=== PATIENT | male | born 1965 | race Caucasian/White ===

== ENCOUNTER 2018-02-17 18:41 | Inpatient (IN) | payer OTHER ==
[~2018-02-17] VITALS: Ht 180.3 cm; Wt 91.7 kg
[~2018-02-17 18:41] MED LIST: ADDERALL 10 MG10 MG; ATIVAN0.5 MG PO; LISINOPRIL10 MG PO; ULTRAM50 MG PO
[2018-02-17] MEDS ORDERED: SODIUM CHLORIDE 0.9% 1000ML 1,000 ML IV STA (19:19)
[2018-02-17] MEDS ORDERED: HYDROMORPHONE 1MG/1ML INJ IV STA ×2 (19:19→22:07)
[2018-02-17] MEDS ORDERED: ONDANSETRON HCL INJ 2 MG/ML VIAL IV STA ×2 (19:19→22:07)
[2018-02-17] MEDS ORDERED: DIATRIZOATE MEGL/DIATRIZOA SOD 30 ML BTL PO ONE (19:31)
[2018-02-17 19:32] LABS: BASOPHILS # (AUTO) 0.1 (0.0-0.1); BASOPHILS % 0.6 % (0.0-1.0); EOSINOPHILS # (AUTO) 0.3 (0.0-0.4); EOSINOPHILS % 3.6 % (0.0-6.0); HEMOGLOBIN 15.2 g/dL (14.0-18.0); LYMPHOCYTES # (AUTO) 1.3 (1.0-3.2); LYMPHOCYTES % 15.6 % (18.0-39.1); MEAN CORPUSCULAR HEMOGLOBIN 33.3 pg (28-32); MEAN CORPUSCULAR HGB CONC 35.3 g/dL (31-35); MEAN CORPUSCULAR VOLUME 94.3 fL (81-99); MONOCYTES % 11.6 % (4.4-11.3); NEUTROPHILS # (AUTO) 5.7 (2.1-6.9); NEUTROPHILS % 68.1 % (38.7-80.0); PLATELET COUNT 218 x10e3/uL (140-360); RED BLOOD COUNT 4.56 x10e6/uL (4.3-5.7)
[2018-02-17 19:45] LABS: ALANINE AMINOTRANSFERASE 91 IU/L (0-55); ALBUMIN 4.2 g/dL (3.5-5.0); ALBUMIN/GLOBULIN RATIO 1.4 (0.8-2.0); ALKALINE PHOSPHATASE 63 IU/L (40-150); AMYLASE 32 U/L (25-125); ANION GAP 13.5 mmol/L (8-16); BLOOD UREA NITROGEN 15 mg/dL (7-26); BUN/CREATININE RATIO 17 (6-25); CALCIUM 9.2 mg/dL (8.4-10.2); CARBON DIOXIDE 24 mmol/L (22-29); CHLORIDE 105 mmol/L (98-107); CREATININE, SERUM 0.88 mg/dL (0.72-1.25); EST GLOMERULAR FILTRATION RATE > 60 ML/MIN (60-); GLUCOSE 104 mg/dL (74-118); LIPASE 35 U/L (8-78); POTASSIUM 4.5 mmol/L (3.5-5.1); SODIUM 138 mmol/L (136-145)
[2018-02-17] MEDS ORDERED: METHYLPREDNISOLONE SOD SUCC 125 MG/2ML VIAL IV STA (21:28)
[2018-02-17] MEDS ORDERED: DIPHENHYDRAMINE HCL INJ 50 MG/ML VIAL IV STA (21:28)
[2018-02-17] MEDS ORDERED: DIPHENHYDRAMINE HCL INJ 50 MG/ML VIAL ONE (21:29)
[2018-02-17] MEDS ORDERED: METHYLPREDNISOLONE SOD SUCC 125 MG/2ML VIAL ONE (21:29)
--- NOTE | 2018-02-17 21:50 | Diagnostic Imaging Report ---
EXAM: CT Abdomen and Pelvis WITH contrast INDICATION: Left lower quadrant pain concerning for diverticulitis COMPARISON: None. TECHNIQUE: Abdomen and pelvis were scanned utilizing a multidetector helical scanner from the lung base to the pubic symphysis after administration of IV contrast. Coronal and sagittal reformations were obtained. Routine protocol was performed. Scan was performed when during portal venous phase. IV CONTRAST: 100 mL of Isovue-370 ORAL CONTRAST: Gastrografin RADIATION DOSE: Total DLP: 615.33 mGy*cm Estimated effective dose: (DLP x 0.015 x size factor) mSv COMPLICATIONS: None FINDINGS: LINES and TUBES: None. LOWER THORAX: Unremarkable HEPATOBILIARY: The liver is diffuse hypodense compared to the spleen, consistent with diffuse hepatic diffuse hepatic steatosis. No focal hepatic lesions. No biliary ductal dilation. GALLBLADDER: No radio-opaque stones or sludge. No wall thickening. SPLEEN: No splenomegaly. PANCREAS: No focal masses or ductal dilatation. ADRENALS: No adrenal nodules KIDNEYS/URETERS: Kidneys enhance symmetrically. No hydronephrosis. No cystic or solid mass lesions. No stones. GI TRACT: Segmental circumferential thickening of the distal descending colon best seen on coronal series 301, image 54 and sagittal, series 300, image 113 and axial series 2, image 62 There are diverticula within the colon without evidence of diverticulitis. Appendix is normal. PELVIC ORGANS/BLADDER: Unremarkable. LYMPH NODES: No lymphadenopathy. VESSELS: There is moderate atherosclerotic disease in the aorta and major arterial branches. PERITONEUM / RETROPERITONEUM: No free air or fluid. BONES: Unremarkable. SOFT TISSUES: Unremarkable. IMPRESSION: 1. Diverticulosis without evidence of diverticulitis. 2. Focal short segment circumferential thickening of the distal descending colon compatible with colitis. 3. No evidence of complications Signed by: Dr. Gray Gotti M.D. on 02/17/2018 9:47 PM
[2018-02-17] MEDS ORDERED: SODIUM CHLORIDE 0.9% 50ML 50 ML ONE (22:38)
[2018-02-17] MEDS ORDERED: IOPAMIDOL 370 MG/ML 200 ML INFUS..BTL INJ ONE (22:38)
[2018-02-17] MEDS: SODIUM CHLORIDE 0.9% 1000ML 1,000 ML IV SCH (23:00)
[2018-02-18] VITALS (10 sets, daily range): BP systolic 107–143; BP diastolic 58–99
[2018-02-18] MEDS: METRONIDAZOLE 500MG/NS 100ML 100 ML IV SCH ×5 (00:30→18:23)
[2018-02-18] MEDS: LEVOFLOXACIN 500MG/D5W 100ML 100 ML IV SCH ×2 (00:36→22:15)
[2018-02-18 00:54] LABS: HEMATOCRIT 41.6 % (38.2-49.6); HEMOGLOBIN 14.7 g/dL (14.0-18.0)
[2018-02-18] MEDS: MORPHINE SULFATE 2 MG/ML SYR IV PRN ×3 (05:44→18:20)
[2018-02-18 06:39] LABS: BILIRUBIN,URINE NEGATIVE (NEGATIVE); CLARITY,URINE CLEAR (CLEAR); COLOR,URINE YELLOW (YELLOW); KETONES,URINE NEGATIVE (NEGATIVE); LEUKOCYTE ESTERASE ,URINE NEGATIVE (NEGATIVE); NITRITE,URINE NEGATIVE (NEGATIVE); PROTEIN,URINE DIPSTICK NEGATIVE (NEGATIVE); URINE UROBILINOGEN 0.2 mg/dL (0.2 - 1)
[2018-02-18 06:44] LABS: HEMATOCRIT 40.9 % (38.2-49.6); HEMOGLOBIN 14.2 g/dL (14.0-18.0)
[2018-02-18] MEDS: SODIUM CHLORIDE 0.9% 1000ML 1,000 ML IV SCH ×3 (07:21→22:07)
[2018-02-18 07:39] LABS: ALANINE AMINOTRANSFERASE 82 IU/L (0-55); ALBUMIN 3.6 g/dL (3.5-5.0); ALBUMIN/GLOBULIN RATIO 1.2 (0.8-2.0); ALKALINE PHOSPHATASE 55 IU/L (40-150); ANION GAP 10.5 mmol/L (8-16); BLOOD UREA NITROGEN 12 mg/dL (7-26); BUN/CREATININE RATIO 13 (6-25); CALCIUM 8.6 mg/dL (8.4-10.2); CARBON DIOXIDE 24 mmol/L (22-29); CHLORIDE 104 mmol/L (98-107); CREATININE, SERUM 0.91 mg/dL (0.72-1.25); EST GLOMERULAR FILTRATION RATE > 60 ML/MIN (60-); GLUCOSE 161 mg/dL (74-118); POTASSIUM 4.5 mmol/L (3.5-5.1); SODIUM 134 mmol/L (136-145)
[2018-02-18] MEDS: PANTOPRAZOLE 40 MG 10ML VIAL IV SCH (09:12)
[2018-02-18] MEDS ORDERED: PEG (High)/E-LYTE SOLN 4,000 ML BTL PO ONE (15:15)
[2018-02-18 18:38] LABS: HEMATOCRIT 40.3 % (38.2-49.6)
[2018-02-18] MEDS ORDERED: CITRATE OF MAGNESIA 300ML BOTTLE PO ONE (22:15)
[2018-02-19] VITALS (7 sets, daily range): BP systolic 119–149; BP diastolic 78–93
[2018-02-19] MEDS: METRONIDAZOLE 500MG/NS 100ML 100 ML IV SCH ×3 (00:10→12:23)
[2018-02-19] MEDS: SODIUM CHLORIDE 0.9% 1000ML 1,000 ML IV SCH (05:20)
[2018-02-19 06:35] LABS: HEMATOCRIT 40.6 % (38.2-49.6); HEMOGLOBIN 14.2 g/dL (14.0-18.0)
[2018-02-19 09:44] LABS: WBC,FECAL (FECAL LACTOFERRIN) POSITIVE (NEGATIVE)
--- NOTE | 2018-02-19 10:25 | Operative Report ---
DATE OF PROCEDURE: February 19, 2018 REFERRING PHYSICIAN: Dr. Conor White PROCEDURE PERFORMED: Colonoscopy with biopsies. INDICATIONS FOR COLONOSCOPY: Rectal bleeding. Abnormal CT scan of the abdomen. MEDICATION: Patient was done under MAC. Please see anesthesiologist's note. PROCEDURE: With the patient in the left lateral decubitus position, the flexible fiberoptic Olympus colonoscope was inserted into the rectum with ease and advanced all the way to the cecum. Mucosa overlying the cecum appeared to be within normal limits. The ileocecal valve was intubated, and the scope was advanced into the terminal ileum. An aphthous-like ulcer was noted in the terminal ileum that was biopsied. The scope was then withdrawn back into the colon. It was then withdrawn slowly. Mucosa overlying the ascending and transverse as well as the descending appeared to be within normal limits. Patchy areas of intense erythema were noted in the proximal sigmoid colon, and there was a short, severely ulcerated segment in the mid sigmoid colon. The distal sigmoid, other than for diverticular disease, grossly appeared to be within normal limits as well as the rectum. The scope was then retroflexed into the distal rectum, and small internal hemorrhoids were noted, none of which was actively bleeding. The scope was then straightened out. It was subsequently withdrawn after securing an adequate stool specimen that was sent for the appropriate stool studies. Patient tolerated the procedure well. IMPRESSION 1. Minute ulcer, terminal ileum, biopsied. 2. Sigmoiditis. Short, severely ulcerated segment, mid sigmoid colon, biopsied. 3. Diverticulosis. 4. Internal hemorrhoids, none actively bleeding. PLAN: Follow up histology. Follow up stool studies. Initiate low-residue diet. Job#: [id number] cc:CONOR WHITE MD
[2018-02-19] MEDS: PANTOPRAZOLE 40 MG 10ML VIAL IV SCH (11:00)
[2018-02-19] MEDS ORDERED: PROPOFOL IV EMULSION 10 MG/ML 50 ML VIAL ONE (12:55)
[2018-02-19] MEDS ORDERED: HYOSCYAMINE SULFATE 0.5 MG/ML AMP ONE (12:55)
[2018-02-19] MEDS ORDERED: FENTANYL CITRATE/PF 100MCG/2 ML INJ ONE (13:04)
[2018-02-19] MEDS ORDERED: MIDAZOLAM HCL 2 MG/2 ML VIAL ONE (13:04)
[2018-02-19 14:41] LABS: C DIFFICILE TOXIN A&B AMP PROB NEGATIVE (NEGATIVE)
[2018-02-19] MEDS ORDERED: FLAGYL500 MG PO (17:41)
[2018-02-19] MEDS ORDERED: LEVAQUIN500 MG PO (17:41)
== END 2018-02-19 18:05 | disposition home or self-care (01) | DRG 378 ==
LOC: ER 18:41 → ERHOLD 22:15 → MED/SURG3 23:55
PROVIDERS: ADMIT Internal Medicine; ATTEND Internal Medicine
PROC: 0DBB8ZX Excision of Ileum, Via Natural or Artificial Opening Endoscopic, Diagnostic (ICD-10-PCS; principal; 2018-02-19 08:24)
PROC: 0DBN8ZX Excision of Sigmoid Colon, Via Natural or Artificial Opening Endoscopic, Diagnostic (ICD-10-PCS; 2018-02-19 08:24)
DX: K92.2 Gastrointestinal hemorrhage, unspecified (principal); K63.3 Ulcer of intestine; K52.9 Noninfective gastroenteritis and colitis, unspecified; I10 Essential (primary) hypertension; K57.30 Diverticulosis of large intestine without perforation or abscess without bleeding; K64.8 Other hemorrhoids; M54.9 Dorsalgia, unspecified; G89.29 Other chronic pain; R79.89 Other specified abnormal findings of blood chemistry; Z88.5 Allergy status to narcotic agent
CPT/HCPCS: 36415; 45378; 45380; 74177; 80053; 81001; 82150; 82270; 83630; 83690; 83735; 83993; 85014; 85018; 85025; 86850; 86900; 87045; 87177; 87328; 87493; 88305; 93005; 96361; 96374; 99284; J1170; J1200; J1956; J1980; J2250; J2270; J2405; J2930; J7030; Q9967

== ENCOUNTER 2024-08-31 16:33 | Emergency (ER) | payer OTHER ==
[~2024-08-31] VITALS: Ht 180.3 cm; Wt 94.3 kg
[~2024-08-31 16:33] MED LIST changes: +FLAGYL500 MG PO; +LEVAQUIN500 MG PO
[2024-08-31 16:42] VITALS: TEMP 98.5
[2024-08-31] MEDS: LACTATED RINGER'S 1,000 ML INJ ONE ×2 (16:50→17:40)
[2024-08-31 16:57] LABS: BASOPHILS % 0.6 % (0.0-1.0); EOSINOPHILS # (AUTO) 0.1 (0.0-0.4); EOSINOPHILS % 1.3 % (0.0-6.0); HEMATOCRIT 44.5 % (38.2-49.6); HEMOGLOBIN 14.3 g/dL (14.0-18.0); LYMPHOCYTES # (AUTO) 0.7 (1.0-3.2); LYMPHOCYTES % 10.2 % (18.0-39.1); MEAN CORPUSCULAR HEMOGLOBIN 32.5 pg (28-32); MEAN CORPUSCULAR HGB CONC 32.1 g/dL (31-35); MEAN CORPUSCULAR VOLUME 101.1 fL (81-99); MONOCYTES # (AUTO) 0.9 (0.2-0.8); MONOCYTES % 13.4 % (4.4-11.3); NEUTROPHILS # (AUTO) 5.2 (2.1-6.9); NEUTROPHILS % 74.2 % (38.7-80.0); PLATELET COUNT 168 x10e3/uL (140-360); RED CELL DISTRIBUTION WIDTH 13.2 % (11.7-14.4); WHITE BLOOD COUNT 6.95 x10e3/uL (4.8-10.8)
[2024-08-31 17:17] LABS: INFLUENZA A AG NEGATIVE (NEGATIVE)
[2024-08-31 17:18] LABS: CORONAVIRUS COVID-19 AG NEGATIVE (NEGATIVE); INFLUENZA B AG NEGATIVE (NEGATIVE)
[2024-08-31 17:21] LABS: ALBUMIN 3.8 g/dL (3.5-5.0); ALBUMIN/GLOBULIN RATIO 1.4 (0.8-2.0); ANION GAP 14.2 mmol/L (8-16); BILIRUBIN,TOTAL 0.3 mg/dL (0.2-1.2); CALCIUM 8.8 mg/dL (8.4-10.2); CREATININE, SERUM 1.63 mg/dL (0.72-1.25); POTASSIUM 4.2 mmol/L (3.5-5.1); TOTAL PROTEIN 6.6 g/dL (6.5-8.1)
[2024-08-31 17:27] LABS: TROPONIN I 0.017 ng/mL (0-0.300)
[2024-08-31] MEDS ORDERED: GUAIFENESIN-DM1 EAC1 PO (17:38)
[2024-08-31] MEDS: GUAIFENESIN 600MG/DEXTROMETHORPHAN 30MG TABSR PO STA (18:18)
[2024-08-31 18:31] VITALS: PULSE 84; RESP 16; O2SAT 99
== END 2024-08-31 18:55 | disposition home or self-care (01) ==
LOC: ER 16:38
DX: R05.9 Cough, unspecified (principal); R09.89 Other specified symptoms and signs involving the circulatory and respiratory systems; I10 Essential (primary) hypertension; Z11.52 Encounter for screening for COVID-19; Z87.19 Personal history of other diseases of the digestive system
CPT/HCPCS: 36415; 71045; 80053; 84484; 85025; 87428; 93005; 99284; J7121